=== PATIENT | female | born 1940 | race Caucasian/White ===

== ENCOUNTER → 2021-05-03 | Outpatient (CLI) | payer MEDICARE, OTHER ==
[~2021-05-03] MED LIST: AMLO10 PO; ASPI81CH PO; Aspirin EC81 MG PO; CARV3.125 PO; Coreg12.5 MG PO; FISH1000 PO; FURO20 PO; GLUC500 PO; LOSA25 PO; LOSA50 PO; LOSHYD PO; MULVITMIND PO; Micro-K10 MEQ; NITR.4SL SL; SPIR25 PO; Simvastatin20 MG PO
[2021-05-03 15:56] LABS: Hematocrit 31.2 % (33.0-51.0); Hemoglobin 10.5 g/dL (11.5-16.0); Mean Corpuscular HGB 40.5 pg (26.0-34.0); Mean Corpuscular HGB Conc 33.7 g/dL (31.5-36.5); Mean Corpuscular Volume 121 fL (80-100); Mean Platelet Volume 10.7 fL (9.1-12.4); Platelet Count 211 K/mm3 (150-400); RDW Coefficient Variation 14.9 % (11.7-14.2); RDW Standard Deviation 66.8 fL (35.1-46.3); Red Blood Cell Count 2.59 M/mm3 (3.80-5.20); White Blood Cell Count 3.81 K/mm3 (4.00-11.30)
[2021-05-03 16:22] LABS: Alanine Aminotransfer (ALT/SGP 30 U/L (12-78); Albumin, Blood 4.2 g/dL (3.4-5.0); Albumin/Globulin Ratio 1.2 (0.8-1.8); Alk Phos 77 U/L (50-136); Anion Gap 5 mmol/L (6-16); Aspartate Aminotrans (AST/SGOT 27 U/L (12-37); Bilirubin, Total 1.2 mg/dL (0.1-1.0); Blood Urea Nitrogen 17 mg/dL (8-24); Bun/Creatinine Ratio 15.5 (12.0-20.0); CHOL/HDL RATIO 2.9; CO2, Blood 28 mmol/L (21-32); Calcium, Blood 10.1 mg/dL (8.5-10.1); Chloride, Blood 106 mmol/L (98-108); Cholesterol 180 mg/dL (50-200); Globulin, Blood 3.6 g/dL (2.2-4.0); Glomerular Filtration Rate 48 (60-); Glucose, Blood 111 mg/dL (70-99); HDL Cholesterol 63 mg/dL (>39); LDL/HDL RATIO 1.4; Low Density Lipoprotein Chol 90 mg/dL (0-110); Potassium, Blood 3.4 mmol/L (3.5-5.5); Sodium, Blood 139 mmol/L (136-145); Total Protein, Blood 7.8 g/dL (6.4-8.2); Triglycerides 135 mg/dL (30-160); Very Low Density Lipoprot Chol 27 mg/dL (6-32)
== END | disposition home or self-care (01) ==
LOC: LAB SHORT 11:45 → LAB 11:45
PROVIDERS: Physician Assistant
DX: Z00.00 Encounter for general adult medical examination without abnormal findings (principal); Z13.6 Encounter for screening for cardiovascular disorders; I10 Essential (primary) hypertension
CPT/HCPCS: 80053; 80061; 85025

== ENCOUNTER 2021-07-24 13:19 | Emergency (ER) | payer MEDICARE, OTHER ==
[~2021-07-24] VITALS: Ht 157.5 cm; Wt 88.0 kg
[2021-07-24] MEDS ORDERED: ATOR80 PO (14:19)
[2021-07-24] MEDS ORDERED: POTA10T PO (14:19)
[2021-07-24] MEDS ORDERED: HYDCHL25 PO (14:19)
[2021-07-24] MEDS ORDERED: HYDURE500 PO (14:20)
[2021-07-24] MEDS ORDERED: PACERONE100 M1 PO (14:20)
[2021-07-24 15:14] LABS: BASOPHILS ABSOLUTE AUTO 0.01 K/mm3 (0.00-0.23); BASOPHILS PERCENT AUTO 0 % (0-2); EOSINOPHILS ABSOLUTE AUTO 0.04 K/mm3 (0.00-0.68); EOSINOPHILS PERCENT AUTO 1 % (0-6); Hematocrit 34.2 % (33.0-51.0); IMMATURE GRAN ABSOLUTE AUTO 0.01 K/mm3 (0.00-0.10); IMMATURE GRAN PERCENT AUTO 0 % (0-1); LYMPHOCYTES ABSOLUTE AUTO 1.05 K/mm3 (0.84-5.20); LYMPHOCYTES PERCENT AUTO 25 % (21-46); MONOCYTES ABSOLUTE AUTO 0.32 K/mm3 (0.16-1.47); MONOCYTES PERCENT AUTO 8 % (4-13); Mean Corpuscular HGB 37.2 pg (26.0-34.0); Mean Corpuscular HGB Conc 32.2 g/dL (31.5-36.5); Mean Corpuscular Volume 116 fL (80-100); Mean Platelet Volume 10.9 fL (9.1-12.4); NEUTROPHILS ABSOLUTE AUTO 2.74 K/mm3 (1.96-9.15); NEUTROPHILS PERCENT AUTO 66 % (41-73); Platelet Count 120 K/mm3 (150-400); RDW Coefficient Variation 12.9 % (11.7-14.2); RDW Standard Deviation 54.5 fL (35.1-46.3); Red Blood Cell Count 2.96 M/mm3 (3.80-5.20); White Blood Cell Count 4.17 K/mm3 (4.00-11.30)
[2021-07-24 15:23] LABS: Albumin, Blood 3.2 g/dL (3.4-5.0); Albumin/Globulin Ratio 0.9 (0.8-1.8); Bilirubin, Total 0.7 mg/dL (0.1-1.0); Calcium, Blood 9.2 mg/dL (8.5-10.1); Creatinine, Blood 1.15 mg/dL (0.40-1.00); Globulin, Blood 3.5 g/dL (2.2-4.0); Potassium, Blood 3.8 mmol/L (3.5-5.5); Total Protein, Blood 6.7 g/dL (6.4-8.2)
[2021-07-24 16:31] LABS: Source, Urine Voided
[2021-07-24 16:33] LABS: SARS-Cov-2 (COVID-19) PCR, MMC NEGATIVE (NEGATIVE)
[2021-07-24 16:49] LABS: Appearance, Urine Clear (Clear); Blood, Urine Neg (Neg); Color, Urine Amber (P-Yellow); Glucose Qualitative, Urine Neg (Neg); Ketones, Urine Neg (Neg); Leukocyte Esterase, Urine 1+ (Neg); Nitrite, Urine Neg (Neg); Protein, Urine 2+ (Neg); Urobilinogen, Urine 2+ (Normal)
[2021-07-24 17:04] LABS: Bilirubin, Urine 1+ (Neg)
[2021-07-24 17:05] LABS: Bacteria Many /hpf
[2021-07-24 17:06] LABS: Red Blood Cells, Urine 0-2 /hpf (0-2); Squamous Epithelial Cells Mod /hpf (Few)
== END 2021-07-24 18:30 | disposition home or self-care (01) ==
LOC: ER 13:19
PROVIDERS: Emergency Medicine
DX: R55 Syncope and collapse (principal); I10 Essential (primary) hypertension; I25.2 Old myocardial infarction; Z79.899 Other long term (current) drug therapy
CPT/HCPCS: 36415; 71045; 80053; 81001; 84484; 85025; 87077; 87086; 87186; 93005; 93010; 93242; 99284-25; U0004

== ENCOUNTER → 2024-07-20 | Outpatient (CLI) | payer MEDICARE, OTHER ==
[~2024-07-20] MED LIST changes: +ATOR80 PO; +HYDCHL25 PO; +HYDURE500 PO; +PACERONE100 M1 PO; +POTA10T PO
[2024-07-20 15:18] LABS: BASOPHILS ABSOLUTE AUTO 0.02 K/mm3 (0.00-0.23); BASOPHILS PERCENT AUTO 0 % (0-2); EOSINOPHILS ABSOLUTE AUTO 0.09 K/mm3 (0.00-0.68); EOSINOPHILS PERCENT AUTO 2 % (0-6); Hematocrit 37.6 % (33.0-51.0); Hemoglobin 12.7 g/dL (11.5-16.0); IMMATURE GRAN ABSOLUTE AUTO 0.03 K/mm3 (0.00-0.10); IMMATURE GRAN PERCENT AUTO 1 % (0-1); LYMPHOCYTES ABSOLUTE AUTO 1.42 K/mm3 (0.84-5.20); LYMPHOCYTES PERCENT AUTO 27 % (21-46); MONOCYTES ABSOLUTE AUTO 0.44 K/mm3 (0.16-1.47); MONOCYTES PERCENT AUTO 9 % (4-13); Mean Corpuscular HGB 35.3 pg (26.0-34.0); Mean Corpuscular HGB Conc 33.8 g/dL (31.5-36.5); Mean Corpuscular Volume 104 fL (80-100); Mean Platelet Volume 9.9 fL (9.1-12.4); NEUTROPHILS ABSOLUTE AUTO 3.19 K/mm3 (1.96-9.15); NEUTROPHILS PERCENT AUTO 61 % (41-73); Platelet Count 579 K/mm3 (150-400); RDW Coefficient Variation 14.3 % (11.7-14.2); RDW Standard Deviation 55.4 fL (35.1-46.3); White Blood Cell Count 5.19 K/mm3 (4.00-11.30)
[2024-07-20 15:22] LABS: Iron Serum 105 ug/dL (50-170); LDL/HDL RATIO 1.8; Percent Saturation 32.9 % (15.0-50.0); Total Iron Binding Capacity 319 ug/dL (250-450)
[2024-07-20 15:23] LABS: Alanine Aminotransfer (ALT/SGP 21 U/L (12-78); Albumin, Blood 4.4 g/dL (3.4-5.0); Albumin/Globulin Ratio 1.1 (0.8-1.8); Alk Phos 80 U/L (50-136); Anion Gap 8 mmol/L (3-11); Aspartate Aminotrans (AST/SGOT 23 U/L (12-37); Bilirubin, Direct 0.2 mg/dL (0.0-0.3); Bilirubin, Indirect 0.8 mg/dL (0.1-0.7); Blood Urea Nitrogen 14 mg/dL (8-24); Bun/Creatinine Ratio 16.1 (12.0-20.0); CHOL/HDL RATIO 3.5; CO2, Blood 28 mmol/L (21-32); Calcium, Blood 9.7 mg/dL (8.5-10.1); Chloride, Blood 106 mmol/L (98-108); Cholesterol 216 mg/dL (50-200); Creatinine, Blood 0.87 mg/dL (0.40-1.00); Globulin, Blood 3.9 g/dL (2.2-4.0); Glomerular Filtration Rate 66 (60-); Glucose, Blood 127 mg/dL (70-99); HDL Cholesterol 62 mg/dL (>39); Low Density Lipoprotein Chol 109 mg/dL (0-110); Potassium, Blood 3.2 mmol/L (3.5-5.5); Sodium, Blood 139 mmol/L (136-145); Total Protein, Blood 8.3 g/dL (6.4-8.2); Triglycerides 223 mg/dL (30-160); Very Low Density Lipoprot Chol 44 mg/dL (6-32)
== END | disposition home or self-care (01) ==
LOC: LAB 08:50 → LAB SHORT 08:50
PROVIDERS: Nurse Practitioner Family
DX: D75.839 Thrombocytosis, unspecified (principal); I10 Essential (primary) hypertension; R01.1 Cardiac murmur, unspecified
CPT/HCPCS: 80053; 80061; 82248; 83540; 83550; 83880; 83970; 85025

== ENCOUNTER 2025-01-14 04:24 | Inpatient (IN) | payer MEDICARE, OTHER ==
[~2025-01-14] VITALS: Ht 157.5 cm; Wt 77.8 kg
[2025-01-14 04:53] LABS: BASOPHILS ABSOLUTE AUTO 0.01 K/mm3 (0.00-0.23); BASOPHILS PERCENT AUTO 0 % (0-2); EOSINOPHILS PERCENT AUTO 0 % (0-6); Hematocrit 34.9 % (33.0-51.0); Hemoglobin 11.7 g/dL (11.5-16.0); IMMATURE GRAN ABSOLUTE AUTO 0.03 K/mm3 (0.00-0.10); IMMATURE GRAN PERCENT AUTO 0 % (0-1); LYMPHOCYTES ABSOLUTE AUTO 1.28 K/mm3 (0.84-5.20); LYMPHOCYTES PERCENT AUTO 17 % (21-46); MONOCYTES ABSOLUTE AUTO 0.62 K/mm3 (0.16-1.47); MONOCYTES PERCENT AUTO 8 % (4-13); Mean Corpuscular HGB Conc 33.5 g/dL (31.5-36.5); Mean Corpuscular Volume 116 fL (80-100); Mean Platelet Volume 9.9 fL (9.1-12.4); NEUTROPHILS ABSOLUTE AUTO 5.82 K/mm3 (1.96-9.15); NEUTROPHILS PERCENT AUTO 75 % (41-73); Platelet Count 468 K/mm3 (150-400); RDW Coefficient Variation 13.7 % (11.7-14.2); RDW Standard Deviation 58.7 fL (35.1-46.3); White Blood Cell Count 7.76 K/mm3 (4.00-11.30)
[2025-01-14 05:14] LABS: Albumin, Blood 3.7 g/dL (3.4-5.0); Bilirubin, Total 0.6 mg/dL (0.1-1.0); Bun/Creatinine Ratio 19.6 (12.0-20.0); Calcium, Blood 9.2 mg/dL (8.5-10.1); Creatinine, Blood 1.12 mg/dL (0.40-1.00); Globulin, Blood 3.8 g/dL (2.2-4.0); Potassium, Blood 3.6 mmol/L (3.5-5.5); Total Protein, Blood 7.5 g/dL (6.4-8.2)
[2025-01-14 05:27] LABS: Influenza A, PCR NEGATIVE (NEGATIVE); Influenza B, PCR NEGATIVE (NEGATIVE); Resp Syncytial Virus, PCR NEGATIVE (NEGATIVE); SARS-Cov-2 (COVID-19) PCR, MMC NEGATIVE (NEGATIVE)
[2025-01-14] MEDS ORDERED: CefTRIAXone Sodium 1,000 MG in NS 50 ML IV ONE (05:45)
[2025-01-14] MEDS ORDERED: Doxycycline Hyclate 100 MG in Dextrose 5% 250 ML IV ONE (05:45)
[2025-01-14] MEDS ORDERED: Guaifenesin/Dextromethorphan Syrup 5 ML UDC PO PRN (06:20)
[2025-01-14] MEDS ORDERED: Ondansetron HCl 2 MG / ML 2ML Vial IV PRN (06:20)
[2025-01-14] MEDS ORDERED: Ipratropium/Albuterol SulF 2.5-0.5MG/3 ML Amp INH PRN (06:20)
[2025-01-14 06:46] LABS: Source, Urine Clean Catch
[2025-01-14 06:53] LABS: Bilirubin, Urine Neg (Neg); Blood, Urine Neg (Neg); Glucose Qualitative, Urine Neg (Neg); Ketones, Urine Neg (Neg); Leukocyte Esterase, Urine Neg (Neg); Nitrite, Urine Neg (Neg); Protein, Urine 1+ (Neg); Urobilinogen, Urine NORM (Normal)
[2025-01-14 06:54] LABS: Appearance, Urine Clear (Clear); Color, Urine Yellow (P-Yellow)
[2025-01-14] MEDS ORDERED: MethylPREDNISolone Sod Succ 125 MG Vial IV SCH (07:00)
[2025-01-14] MEDS ORDERED: Enoxaparin 40 MG/0.4 ML SYR SC SCH (09:00)
[2025-01-14 09:59] VITALS: BP 142/67
[2025-01-14 11:56] VITALS: BP 129/68
[2025-01-14] MEDS ORDERED: Scopolamine Hydrobromide Patch TD ONE (12:55)
[2025-01-14] MEDS ORDERED: Acetaminophen 325 MG TABLET PO PRN (12:55)
[2025-01-14] MEDS ORDERED: Furosemide 10 MG/ML 4ML Vial IV SCH (15:00)
--- NOTE | 2025-01-14 16:34 | NUR ---
ER ADMIT;. PT IS ALERT AND ORIENTED X4, SOME SOB WITH AMBULATION. PT STATES HX OF 19 FALLS. FALL PRECAUCIONS IN PLACE. SKIN INTACT
[2025-01-14 16:53] VITALS: BP 111/63
[2025-01-14] MEDS ORDERED: Doxycycline Hyclate 100 MG in Dextrose 5% 250 ML IV SCH (18:00)
[2025-01-14 20:09] VITALS: BP 122/53
[2025-01-15] VITALS (7 sets, daily range): BP systolic 133–154; BP diastolic 64–83
[2025-01-15] MEDS ORDERED: NS 250 ML IV PRN (00:05)
[2025-01-15] MEDS ORDERED: CefTRIAXone Sodium 1,000 MG in NS 100 ML IV SCH (06:00)
--- NOTE | 2025-01-15 06:42 | NUR ---
SHIFT SUMMARY: Pt is admitted for acute hypoxic respiratory failure and is a full code. Is alert and able to make needs known. ADLs have been SBA. denies pain or discomfort when asked. Shanitay noted sinus in the 60s 1 deg and bundle branch. On 2lpm via NC.
[2025-01-15 06:44] LABS: BASOPHILS ABSOLUTE AUTO 0.01 K/mm3 (0.00-0.23); BASOPHILS PERCENT AUTO 0 % (0-2); EOSINOPHILS PERCENT AUTO 0 % (0-6); Hemoglobin 10.6 g/dL (11.5-16.0); IMMATURE GRAN ABSOLUTE AUTO 0.05 K/mm3 (0.00-0.10); IMMATURE GRAN PERCENT AUTO 1 % (0-1); LYMPHOCYTES ABSOLUTE AUTO 0.69 K/mm3 (0.84-5.20); LYMPHOCYTES PERCENT AUTO 10 % (21-46); MONOCYTES ABSOLUTE AUTO 0.23 K/mm3 (0.16-1.47); MONOCYTES PERCENT AUTO 3 % (4-13); Mean Corpuscular HGB 38.8 pg (26.0-34.0); Mean Corpuscular HGB Conc 34.2 g/dL (31.5-36.5); Mean Corpuscular Volume 114 fL (80-100); Mean Platelet Volume 10.4 fL (9.1-12.4); NEUTROPHILS ABSOLUTE AUTO 6.31 K/mm3 (1.96-9.15); NEUTROPHILS PERCENT AUTO 87 % (41-73); Platelet Count 411 K/mm3 (150-400); RDW Coefficient Variation 13.4 % (11.7-14.2); RDW Standard Deviation 55.3 fL (35.1-46.3); Red Blood Cell Count 2.73 M/mm3 (3.80-5.20); White Blood Cell Count 7.29 K/mm3 (4.00-11.30)
[2025-01-15 07:31] LABS: Albumin, Blood 3.1 g/dL (3.4-5.0); Albumin/Globulin Ratio 0.8 (0.8-1.8); Bilirubin, Total 0.3 mg/dL (0.1-1.0); Calcium, Blood 9.2 mg/dL (8.5-10.1); Creatinine, Blood 1.04 mg/dL (0.40-1.00); Globulin, Blood 3.8 g/dL (2.2-4.0); Potassium, Blood 3.6 mmol/L (3.5-5.5); Total Protein, Blood 6.9 g/dL (6.4-8.2)
[2025-01-15] MEDS ORDERED: Nitroglycerin 0.4 MG SUBL SL SCH (08:50)
[2025-01-15] MEDS ORDERED: Aspirin 81 MG TabEC PO SCH (09:00)
[2025-01-15] MEDS ORDERED: HydroCHLOROthiazide 25 mg Tab PO SCH (09:00)
[2025-01-15] MEDS ORDERED: HYDROXYurea 500 MG Cap PO SCH (09:00)
[2025-01-15] MEDS ORDERED: Amiodarone HCl 200 MG Tab PO SCH (09:00)
[2025-01-15] MEDS ORDERED: Atorvastatin 40 MG Tab PO SCH (09:00)
[2025-01-15] MEDS ORDERED: Losartan Potassium 50 MG Tab PO SCH (09:00)
[2025-01-15] MEDS ORDERED: Potassium Chloride 20 MEQ TabCR PO SCH (09:17)
--- NOTE | 2025-01-15 11:42 | NUR ---
Spiritual Care | Pt. Request Pt. is awake in bed and welcomed my visit. Pt. displayed evidenc of being full of life, and full of hope. Pt. prefers to be called "[place]". A great deal of time is spent considering matters of hema and belief. Pt. displayed evidence of wanting to be a blessing to all those who care for her. Prayed with Pt. Pt. verbalized gratitude for the spiritual care visit.
[2025-01-15] MEDS ORDERED: PROAIR RESPICL90 MCG INH (14:27)
[2025-01-15] MEDS ORDERED: AZIT250 (14:28)
[2025-01-15] MEDS ORDERED: BENZONATATE100 MG PO (14:28)
[2025-01-15] MEDS ORDERED: LOSARTAN-HCTZ1 EACH PO (14:28)
[2025-01-15] MEDS ORDERED: CARVEDILOL25 M9 PO (14:28)
[2025-01-15] MEDS ORDERED: AMLODIPINE BESYL5 MG PO (14:36)
--- NOTE | 2025-01-15 16:25 | NUR ---
SHIFT SUMMARY PT AOX4, COOPERATIVE, ABLE TO MAKE NEEDS KNOWN. PT IS VERY TALKATIVE. SBA TO BATHROOM FOR NEEDS. PT DOES HAVE PURE WICK ACTIVE DUE TO PT REQUEST OF MULTIPLE FALLS. TOLERATING PO AND IV MEDICATIONS. PT REPORTS WILL PROBABLY STAY INPATIENT FOR A FEW DAYS AFTER HAVING CONVERSATINO WITH MD. BED IN LOWEST POISTION, CALL LIGHT WITHIN REACH.
[2025-01-15] MEDS ORDERED: Carvedilol 6.25 MG Tab PO SCH (17:00)
[2025-01-15] MEDS ORDERED: Benzonatate 100 MG Cap PO PRN (19:40)
[2025-01-15] MEDS ORDERED: DEXTROMETHORPHAN/BENZOCAINE 1 EACH LOZENGE MT PRN (19:40)
--- NOTE | 2025-01-15 19:42 | NUR ---
HOSPITALIST CALLED DUR TO PT HAVING COMPLAINTS OF COUGHING AND SORE THROAT THAT IS NOT GETTING BETTER W/ROBUTUSSIN.HOSPITALIST ORDERED INCREASE OF ROBUTUSSIN 10ML Q4 PRN, TESSALON PEARLS 100MG Q6, AND CEPACOL COUGH DROPS Q4 PRN.HOSPITALIST CALED AT 1940.
[2025-01-15] MEDS ORDERED: Guaifenesin/Dextromethorphan Syrup 5 ML UDC PO PRN (19:45)
[2025-01-16 00:56] VITALS: BP 130/70
--- NOTE | 2025-01-16 03:49 | NUR ---
SHIFT SUMM: PT IS A 84 YO FULL CODE WHO GOES BY THE NAME "KAILEE".PT WAS ADMITTED FOR ARF. PT HAS HAD A RESTFUL EVENING MOST OF THE SHIFT AND WAS ABLE TO MANAGE PT'S COUGH W/ROBUTUSSIN ADJUSTMENT, TESSLON PEARLS AND CEPACOL COUGH DROPS (SEE EMAR). PT DID RECIEVE A NEW IV TO THE [facility] THAT IS PATENT. PT IS ON TELE NSR IN THE 80'S AND AT TIMES SOME BRENT SINUS. PT HAS A 1ST DEG BLOCK AND BBB. PT IS CURRENTLY ON 2L NC AND RA AT BASELINE. PT HAS A PURE WICK IN PLACE FOR COMFORT SHE HAS SOME INCONT BUT USES BATHROOM WITH SBA W/FWW FOR BM'S. PT IS Ax0X4 AND CALLS TO MAKE NEEDS KNOWN. PT HAS SOME CRACKLES AND OCCASIONAL WHEEZY LUNG SOUNDS THIS SHIFT. PT HAS CALL LIGHT CLOSE ANF BED LOW AND LOCKED FOR SAFETY.
[2025-01-16 05:02] VITALS: BP 140/68
[2025-01-16 07:33] VITALS: BP 142/69
[2025-01-16] MEDS ORDERED: Prochlorperazine Edisylate 10 mg Vial IV PRN (11:25)
[2025-01-16] MEDS ORDERED: Chlorpheniramine/Hydroc Polistir 5 ML UDC PO PRN (11:30)
--- NOTE | 2025-01-16 16:17 | NUR ---
SHIFT ASSESSMENT: PATIENT HAS BEEN PLEASANT AND COOPERATIVE WITH CARE. ABLE TO ASK FOR NEEDS TO BE MET. USES CALL LIGHT APPROPRIATELY. TELEMETRY DISCONTINUED. OXYGEN VIA NASAL CANNULA FOR COMFORT DUE TO COUGHING AND SOB. NO SPUTUM SAMPLE WAS COLLECTED DURING SHIFT. BREATHING TREATMENT ADMINISTERED BY RT. PATIENT WAS GIVEN TUSSIONEX PO FOR COUGHING.
--- NOTE | 2025-01-16 18:20 | NUR ---
SHIFT SUMMARY PATIENT A/OX4, ABLE TO MAKE NEEDS KNOWN. PLEASANT AND COOPERATIVE WITH CARE. NEW IV PLACED TO LEFT UPPER ARM VIA ULTRASOUND, IV TO LEFT HAND REMOVED. PATIENT TITRATED OFF OF SUPPLEMENTAL OXYGEN THIS AM, TOLERATING ROOM AIR WELL. PATIENT COMPLAINING OF NAUSEA AND HEADACHE D/T COUGHING. COMPAZINE, TESSALON PEARLES, TYLENOL, AND COUGH DROPS ADMINISTERED PER NOV. LATER PATIENT CONTINUES TO COMPLAIN OF NON PRODUCTIVE COUGH, RT CALLED TO ASSESS. PATIENT ALSO ADMINISTERED TUSSIONEX PER NOV WHICH WAS MORE EFFECTIVE. DAUGHTER AT BEDSIDE CURRENTLY. TELEMETRY REMOVED THIS AM. NO OTHER CONCERNS AT THIS TIME.
[2025-01-16 19:53] VITALS: BP 155/81
[2025-01-17 03:54] VITALS: BP 139/72
--- NOTE | 2025-01-17 04:05 | NUR ---
SUMMARY: PT A/OX4, ENDORSES NEEDS AND CALLS APPROPRIATELY FOR ASSISTANCE. SHE'S UP W/SBA AND FWW TO TOILET W/BRIEF CHANGED PRN. IV SL'D BETWEEN ABX FOR PNM. 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 TYLENOL ALSO PROVIDED FOR TOLERABLE RELIEF OF KIDD R/T COUGHING. COARSE LS AUSCULTATED TO R.LUNG LOBE BUT NO DYSPNEA OR SOB OBSERVED AND SPO2 IS WNL ON RA. UNABLE TO COLLECT SPUTUM SPECIMEN TONIGHT. NO ACUTE CHANGES, VSS/AFEBRILE. WILL REPORT TO DAY RN.
[2025-01-17 04:39] LABS: BASOPHILS ABSOLUTE AUTO 0.01 K/mm3 (0.00-0.23); BASOPHILS PERCENT AUTO 0 % (0-2); EOSINOPHILS ABSOLUTE AUTO 0.02 K/mm3 (0.00-0.68); EOSINOPHILS PERCENT AUTO 0 % (0-6); Hematocrit 31.9 % (33.0-51.0); Hemoglobin 11.2 g/dL (11.5-16.0); IMMATURE GRAN ABSOLUTE AUTO 0.07 K/mm3 (0.00-0.10); IMMATURE GRAN PERCENT AUTO 1 % (0-1); LYMPHOCYTES ABSOLUTE AUTO 0.56 K/mm3 (0.84-5.20); LYMPHOCYTES PERCENT AUTO 6 % (21-46); MONOCYTES ABSOLUTE AUTO 0.24 K/mm3 (0.16-1.47); MONOCYTES PERCENT AUTO 3 % (4-13); Mean Corpuscular HGB Conc 35.1 g/dL (31.5-36.5); Mean Corpuscular Volume 111 fL (80-100); Mean Platelet Volume 10.2 fL (9.1-12.4); NEUTROPHILS ABSOLUTE AUTO 8.11 K/mm3 (1.96-9.15); NEUTROPHILS PERCENT AUTO 90 % (41-73); Platelet Count 479 K/mm3 (150-400); RDW Coefficient Variation 13.2 % (11.7-14.2); RDW Standard Deviation 54.4 fL (35.1-46.3); Red Blood Cell Count 2.87 M/mm3 (3.80-5.20); White Blood Cell Count 9.01 K/mm3 (4.00-11.30)
[2025-01-17 05:04] LABS: Bun/Creatinine Ratio 36.2 (12.0-20.0); Calcium, Blood 9.5 mg/dL (8.5-10.1); Creatinine, Blood 1.27 mg/dL (0.40-1.00); Potassium, Blood 3.4 mmol/L (3.5-5.5)
[2025-01-17 07:40] VITALS: BP 182/90
[2025-01-17 08:25] VITALS: BP 160/72
[2025-01-17] MEDS ORDERED: PredniSONE 20 MG Tab PO SCH (09:00)
[2025-01-17] MEDS ORDERED: AmLODIPine Besylate 5 MG Tab PO SCH (09:00)
[2025-01-17] MEDS ORDERED: Potassium Chloride 20 MEQ TabCR PO ONE (09:00)
[2025-01-17] MEDS ORDERED: Doxycycline Hyclate 100 MG TAB PO SCH (09:00)
[2025-01-17] MEDS ORDERED: Losartan Potassium 50 MG Tab PO SCH (09:00)
[2025-01-17 15:11] VITALS: BP 164/76
--- NOTE | 2025-01-17 17:30 | NUR ---
SHIFT SUMMARY PT CONT LEVEL OF CARE. PT NOTED TO BE A&O X4 AND SBA WITH FWW. PHYSICIAN NOTED ADD ORDER FOR FLUTTER VALVE PT WAS PROVIDED ONE AND EDUCATED ON HOW TO USE. PT NOTED TO HAVE WORSENING KIDNEY FUNCTION THIS SHIFT AND MEDICATIONS CHANGE TO ACCOMADATE LAB. PLAN IS TO MONITOR AND REDRAW LABS IN THE AM AND POSSIBLE DC TOMORROW DEPENDING IF LABS IMPROVE.
[2025-01-17 19:14] VITALS: BP 167/68
[2025-01-18 02:09] VITALS: BP 162/77
--- NOTE | 2025-01-18 05:57 | NUR ---
SHIFT SUMMARY PT SLEPT LONG INTERVALS DURING THE NIGHT. MEDICATED FOR COUGH PER EMAR. PT SBA TO BATHROOM WITH FWW- GAIT STEADY. IV ANTIBIOTICS CONTNUE PER ORDER. BED IN LOWEST POSITION, CALL LIGHT WITHIN REACH, SIDERAILS UP X2.
[2025-01-18 06:15] LABS: BASOPHILS ABSOLUTE AUTO 0.01 K/mm3 (0.00-0.23); BASOPHILS PERCENT AUTO 0 % (0-2); EOSINOPHILS PERCENT AUTO 0 % (0-6); Hematocrit 33.7 % (33.0-51.0); Hemoglobin 11.8 g/dL (11.5-16.0); IMMATURE GRAN ABSOLUTE AUTO 0.04 K/mm3 (0.00-0.10); IMMATURE GRAN PERCENT AUTO 1 % (0-1); LYMPHOCYTES ABSOLUTE AUTO 0.59 K/mm3 (0.84-5.20); LYMPHOCYTES PERCENT AUTO 8 % (21-46); MONOCYTES ABSOLUTE AUTO 0.27 K/mm3 (0.16-1.47); MONOCYTES PERCENT AUTO 4 % (4-13); Mean Corpuscular HGB 38.3 pg (26.0-34.0); Mean Corpuscular Volume 109 fL (80-100); NEUTROPHILS PERCENT AUTO 88 % (41-73); Platelet Count 481 K/mm3 (150-400); RDW Coefficient Variation 13.3 % (11.7-14.2); RDW Standard Deviation 53.5 fL (35.1-46.3); Red Blood Cell Count 3.08 M/mm3 (3.80-5.20); White Blood Cell Count 7.41 K/mm3 (4.00-11.30)
[2025-01-18 06:37] LABS: Bun/Creatinine Ratio 38.3 (12.0-20.0); Calcium, Blood 9.6 mg/dL (8.5-10.1); Creatinine, Blood 1.2 mg/dL (0.40-1.00)
[2025-01-18 07:28] VITALS: BP 167/80
--- NOTE | 2025-01-18 09:29 | NUR ---
Pt. is awake and picking at her breakfast when she welcomes my visit. Pt. displays evidence of yocasta at my arrival. Facilitated an update where the Pt. verbalized that she hopes to be gong home later today. Considered matters of hema and belief for a lengthy amount of time. Prayed with the Pt. Pt. displayed evidence of an uplifted spirit, adn verbalized gratitude for the spiritual care visit.
[2025-01-18] MEDS ORDERED: Acetaminophen650 M1 PO (12:43)
[2025-01-18] MEDS ORDERED: DOXY100 PO (12:44)
[2025-01-18] MEDS ORDERED: AMOCLA500 PO (12:48)
[2025-01-18] MEDS ORDERED: PRED20 PO (12:48)
[2025-01-18] MEDS ORDERED: TUSSIONEX PO (12:55)
[2025-01-18 16:21] VITALS: BP 146/75
--- NOTE | 2025-01-18 17:02 | NUR ---
dc summary pt dc this shift dc instruction gone over with pt whom stated understanding. pt was given hard script and placed in folder. pt was escorted to private vehicle via wheelchair by this nurse.
== END 2025-01-18 16:48 | disposition home or self-care (01) | DRG 193 ==
LOC: ER 04:24 → MEDS 04:25 → ER 06:12 → MEDS 06:12 → ER 19:58 → MEDS 19:58
PROVIDERS: Emergency Medicine; Internal Medicine; ADMIT Internal Medicine
DX: J18.9 Pneumonia, unspecified organism (principal); J96.01 Acute respiratory failure with hypoxia; I50.32 Chronic diastolic (congestive) heart failure; I13.0 Hypertensive heart and chronic kidney disease with heart failure and stage 1 through stage 4 chronic kidney disease, or unspecified chronic kidney disease; N18.2 Chronic kidney disease, stage 2 (mild); I25.10 Atherosclerotic heart disease of native coronary artery without angina pectoris; D47.3 Essential (hemorrhagic) thrombocythemia; J20.9 Acute bronchitis, unspecified; E78.5 Hyperlipidemia, unspecified; I25.2 Old myocardial infarction; Z79.82 Long term (current) use of aspirin
CPT/HCPCS: 0241U; 36415; 71046; 71260; 80048; 80053; 83880; 84145; 84484; 85025; 93005; 93010; 93306; 94640; 94664; 94760; 96372; 96375; 96376; 99285-25; A6590; A9270; G0378; J0696; J0780; J1650; J1938; J2919; J7050; J7060; J7512; P9612; Q9967

== ENCOUNTER 2025-02-01 17:09 | Emergency (ER) | payer MEDICARE, OTHER ==
[~2025-02-01] VITALS: Ht 157.5 cm; Wt 77.1 kg
[~2025-02-01 17:09] MED LIST changes: +AMLODIPINE BESYL5 MG PO; +AMOCLA500 PO; +AZIT250; +Acetaminophen650 M1 PO; +BENZONATATE100 MG PO; +CARVEDILOL25 M9 PO; +DOXY100 PO; +LOSARTAN-HCTZ1 EACH PO; +PRED20 PO; +PROAIR RESPICL90 MCG INH; +TUSSIONEX PO
[2025-02-01 17:39] VITALS: BP 164/91
[2025-02-01] MEDS ORDERED: Bisacodyl 5 MG TabEC PO ONE (20:35)
[2025-02-01] MEDS ORDERED: Polyethylene Glycol 3350 17 gm PO ONE (20:35)
[2025-02-01] MEDS ORDERED: BISA5EC PO (20:37)
[2025-02-01] MEDS ORDERED: MIRALAX17 GM PO (20:37)
== END 2025-02-01 21:13 | disposition home or self-care (01) ==
LOC: ER 17:09
DX: K59.00 Constipation, unspecified (principal); K64.9 Unspecified hemorrhoids; I10 Essential (primary) hypertension; I25.2 Old myocardial infarction; Z79.82 Long term (current) use of aspirin; Z79.52 Long term (current) use of systemic steroids; Z79.899 Other long term (current) drug therapy
CPT/HCPCS: 99283; A9270